=== PATIENT | female | born 1990 | race Two or more races ===

== ENCOUNTER 2022-02-02 19:15 | Observation (INO) | payer BC, MEDICAID ==
[~2022-02-02] VITALS: Ht 165.1 cm; Wt 85.3 kg
== END 2022-02-02 20:35 | disposition home or self-care (01) ==
LOC: LDRP 19:15
PROVIDERS: ADMIT Obstetrics & Gynecology; ATTEND Obstetrics & Gynecology
DX: O26.893 Other specified pregnancy related conditions, third trimester (principal); R10.9 Unspecified abdominal pain; R19.7 Diarrhea, unspecified; R10.2 Pelvic and perineal pain; O99.891 Other specified diseases and conditions complicating pregnancy; M54.9 Dorsalgia, unspecified; Z3A.29 29 weeks gestation of pregnancy
CPT/HCPCS: 59025; 81002; 94760; G0378

== ENCOUNTER 2023-02-09 06:45 | Emergency (ER) | payer MEDICAID, OTHER ==
[~2023-02-09] VITALS: Ht 167.6 cm; Wt 78.0 kg
[2023-02-09] MEDS ORDERED: KETOROLAC TROMETH 30 MG/ML 1ML VIAL IV ONE (08:45)
[2023-02-09] MEDS ORDERED: methylPREDNISolone SOD SUCC 125 MG/2 ML VL IM ONE (08:45)
[2023-02-09 09:08] LABS: Basophils # (auto) 0 10 ^3/uL (0-0.2); Basophils % (auto) 0.3 % (0.0-2.0); Eosinophils # (auto) 0.3 10 ^3/uL (0-0.8); Eosinophils % (auto) 3.4 % (0.0-7.0); Hematocrit 39.4 % (36.0-46.0); Hemoglobin 13.5 g/dL (12.2-16.2); Lymphocytes # (auto) 1.4 10 ^3/uL (0.4-5.4); Lymphocytes % (auto) 18.5 % (10.0-50.0); Mean Corpuscular Hemoglobin 28.6 pg (28.0-32.0); Mean Corpuscular Hgb Conc. 34.1 g/dL (32.0-36.0); Mean Corpuscular Volume 83.8 fL (80.0-100.0); Monocytes # (auto) 0.7 10 ^3/uL (0-1.3); Monocytes % (auto) 9.2 % (0.0-12.0); Neutrophils # (auto) 5.2 10 ^3/uL (1.6-8.6); Neutrophils % (auto) 68.6 % (37.0-80.0); Nucleated Red Blood Cells % 0.1 %; Red Blood Cells 4.71 10^6/uL (4.0-5.20); Red Cell Distribution Width 13.6 % (11.8-14.3); White Blood Cell 7.6 10^3/uL (4.4-10.8)
[2023-02-09 09:18] LABS: Alanine Aminotransferase 16 U/L (7-40); Alkaline Phosphatase 67 U/L (46-116); Anion Gap 7 (5-15); Aspartate Aminotransferase 13 U/L (13-40); BUN/Creatinine Ratio 14.1 (10.0-20.0); Bilirubin, Total 0.7 mg/dL (0.2-1.0); Blood Urea Nitrogen 10 mg/dL (9-23); Calcium 9.5 mg/dL (8.5-10.1); Carbon Dioxide 23 mmol/L (20-30); Chloride 109 mmol/L (98-107); Glucose 105 mg/dL (74-106); Potassium 4.3 mmol/L (3.5-5.1); Sodium 139 mmol/L (136-145); Total Protein 7.9 g/dL (5.7-8.2)
[2023-02-09 09:27] LABS: CRP High Sensitivity 5.63 mg/dL (<1.0)
[2023-02-09 09:59] LABS: Uric Acid 5.5 mg/dL (3.1-7.8)
[2023-02-09 10:16] LABS: Erythrocyte Sedimentation Rate 26 mm/hr (0-20)
[2023-02-09] MEDS ORDERED: IBUP1TAB5 PO (11:01)
[2023-02-09] MEDS ORDERED: PRED20TA2 PO (11:01)
[2023-02-09 11:12] VITALS: BP 132/70; PULSE 107; RESP 20; TEMP 98.7; O2SAT 99
== END 2023-02-09 11:13 | disposition home or self-care (01) ==
LOC: ER 06:45
DX: M70.52 Other bursitis of knee, left knee (principal); M70.51 Other bursitis of knee, right knee; Y93.89 Activity, other specified
CPT/HCPCS: 36415; 73562; 80053; 84550; 85025; 85652; 86141; 96372; 96374; 99284; J1885; J2930; J7030